=== PATIENT | male | born 1960 | race Caucasian/White ===

== ENCOUNTER 2017-08-10 14:41 | Outpatient (RCR) | payer OTHER ==
[2017-08-10 11:30] LABS: PLATELET COUNT, AUTOMATED 236 K/uL (150-450)
[~2017-08-10 14:41] MED LIST: AMOX-559 PO; FLUT16SP19 NS
--- NOTE | 2017-08-11 16:35 | RADIOLOGY IMAGING REPORT ---
FACILITY: [facility] - [place] PATIENT NAME: Rowdy Weinberg : 1960 MR: [id number] V: [id number] EXAM DATE: ORDERING PHYSICIAN: GAYLE MYERS TECHNOLOGIST: Location: [facility] Patient: Rowdy Weinberg : 1960 Visit/Account:[id number] Date of Sevice: 08/11/2017 EXAMINATION: CT Temporal Bone without IV contrast HISTORY: Right-sided earache TECHNIQUE: Non-contrast temporal bone CT was performed with coronal and sagittal reformations. One of the following dose optimization techniques was utilized in the performance of this exam: autom ated exposure control; adjustment of the mA and/or kV according to patient size; or use of iterative reconstruction technique. Specific details can be referenced in the facility's radiology CT exam ope rational policy. COMPARISON: None. FINDINGS: RIGHT: Mastoid air cells / EAC: Normal. Tympanic Membrane / Middle ear/ ossicles: Normal. Cochlea / vestibule / semicircular canals: Normal. Scutum/tegmen tympani: Normal. Vestibular aqueduct: Normal. Petrous apex: Normal. IAC: Negative. ICA / jugular bulb: Normal. Visualized skull base: Normal. LEFT: Mastoid air cells / EAC: Normal. Tympanic Membrane / Middle ear/ ossicles: Normal. Cochlea / vestibule / semicircular canals: Normal. Scutum/tegmen tympani: Normal. Vestibular aqueduct: Normal. Petrous apex: Normal. IAC: Normal. ICA / jugular bulb: Normal. Visualized skull base: Normal. Other: Visualized brain/soft tissues/paranasal sinuses: Small bilateral maxillary sinus mucous retention cys ts. IMPRESSION: Normal temporal bone CT. Report Dictated By: Isaac Cee MD at 08/11/2017 4:26 PM Report E-Signed By: Isaac Cee MD at 08/11/2017 4:30 PM [id number]
== END 2017-08-11 18:00 | disposition home or self-care (01) ==
LOC: CT 14:41
PROVIDERS: ATTEND Internal Medicine
DX: H92.01 Otalgia, right ear (principal)
CPT/HCPCS: 36415; 70480; 82040; 82247; 82310; 82374; 82435; 82565; 82947; 84075; 84132; 84155; 84295; 84450; 84460; 84520; 85025

== ENCOUNTER → 2017-08-19 | Outpatient (CLI) | payer OTHER ==
[2017-08-19 11:25] LABS: LDL CHOLESTEROL 103 mg/dl
--- NOTE | 2017-08-19 15:47 | RADIOLOGY IMAGING REPORT ---
[place] [facility] [place] NAME: Rowdy Weinberg : 1960 MR: [id number] V: [id number] EXAM DATE: ORDERING PHYSICIAN: GAYLE MYERS TECHNOLOGIST: Location: [facility] [place] Patient: Rowdy Weinberg : 1960 Visit/Account:[id number] Date of Sevice: 08/19/2017 LIVER ultrasound HISTORY: Elevated LFTs COMPARISON: None. FINDINGS: Gallbladder: Unremarkable; no stones or sludge. Liver: Negative. Common duct: Normal, 2.5 mm diameter. Pancreas: Appears unremarkable as imaged Right kidney: Appears unremarkable measuring 11.5 cm in length Upper abdominal aorta and IVC: Patent. Ascites: None visualized. IMPRESSION: Unremarkable right upper quadrant ultrasound Report Dictated By: Kelly Raya MD at 08/19/2017 3:41 PM Report E-Signed By: Kelly Raya MD at 08/19/2017 3:43 PM [id number]
== END ==
LOC: US 02:47
PROVIDERS: ATTEND Internal Medicine
DX: R10.13 Epigastric pain (principal); R94.5 Abnormal results of liver function studies
CPT/HCPCS: 36415; 76705; 80074; 82040; 82247; 82310; 82374; 82435; 82465; 82565; 82728; 82947; 83540; 83550; 83718; 84075; 84132; 84155; 84295; 84443; 84450; 84460; 84478; 84520; 86038

== ENCOUNTER → 2017-09-07 | Outpatient (CLI) | payer OTHER | LOC: LAB 09:30 | PROVIDERS: ATTEND Internal Medicine | DX: R94.5 Abnormal results of liver function studies (principal); R10.9 Unspecified abdominal pain | CPT/HCPCS: 36415; 82040; 82247; 82310; 82374; 82435; 82565; 82947; 83516; 84075; 84132; 84155; 84295; 84450; 84460; 84520 ==

== ENCOUNTER → 2017-09-22 | Outpatient (CLI) | payer OTHER ==
[~2017-09-22] MED LIST changes: +FLUT16SP19; +METH4TAB66 PO
== END ==
LOC: AUD 09:00
PROVIDERS: ATTEND Otolaryngology
DX: H69.80 Other specified disorders of Eustachian tube, unspecified ear (principal)
CPT/HCPCS: 92567